=== PATIENT | female | born 1930 | race Caucasian/White ===

== ENCOUNTER → 2016-09-27 | Outpatient (CLI) | payer MEDICARE, BC ==
[~2016-09-27] MED LIST: AC325T PO; ALEN10TA5 PO; ALEN70TA47 PO; CA C1TAB78 PO; CELE100C PO; CHOL5POW MC; CYCL10TA45 PO; FERR325T36 PO; HCT25T PO; MELO-249 PO; MULT-954 PO; OXYB1PAT TD; POLY17PO2 PO; PRAM0.252 PO; SOLI5TAB2 PO; VITA400T PO
== END ==
LOC: LAB 15:41
PROVIDERS: ATTEND Internal Medicine Hematology & Oncology
DX: C18.2 Malignant neoplasm of ascending colon (principal)
CPT/HCPCS: 36415; 82565; 84520

== ENCOUNTER → 2016-09-28 | Outpatient (CLI) | payer MEDICARE, BC ==
--- NOTE | 2016-09-28 09:08 | Diagnostic Imaging Report ---
PROCEDURE: CT of the abdomen with and without contrast and CT of the pelvis with contrast. TECHNIQUE: Precontrast acquisitions were acquired through the abdomen. Multiple contiguous axial images were obtained through the abdomen and pelvis after administration of intravenous contrast. INDICATION: History of colon cancer, left lower quadrant abdominal pain. COMPARISON: 04/27/16. FINDINGS: Mitral annular calcifications are present. The lung bases are clear. Cholelithiasis is present. There is no cholecystitis. Solid organs and vascular structures are stable. There is a significant tortuosity of the abdominal aorta. There is diverticulosis of the sigmoid colon without overt diverticulitis. There is no bowel obstruction, free air, free fluid or ileus. No obvious mass identified. There is no lymphadenopathy. Distal ureters and urinary bladder are normal. Osseous structures are age-appropriate. Significant degenerative changes are seen throughout the lumbar spine. There is a stable right convexity lumbar scoliosis. IMPRESSION: 1. Cholelithiasis without cholecystitis. 2. Mitral valvular disease. 3. Diverticulosis of the sigmoid colon without diverticulitis. 4. No abscess, free air or free fluid. 5. No bowel obstruction or ileus identified. Dictated by: Dictated on workstation # [id number]
== END ==
LOC: RAD 06:52
PROVIDERS: ATTEND Internal Medicine Hematology & Oncology
DX: R10.32 Left lower quadrant pain (principal); K80.20 Calculus of gallbladder without cholecystitis without obstruction; I05.9 Rheumatic mitral valve disease, unspecified; K57.30 Diverticulosis of large intestine without perforation or abscess without bleeding
CPT/HCPCS: 74178; Q9967

== ENCOUNTER → 2016-10-01 | Outpatient (CLI) | payer MEDICARE, BC | LOC: LAB 08:24 | PROVIDERS: ATTEND Internal Medicine Hematology & Oncology | DX: R10.9 Unspecified abdominal pain (principal); R19.7 Diarrhea, unspecified | CPT/HCPCS: 87324; 87449; 87493 ==

== ENCOUNTER 2016-10-20 07:37 | Day surgery (SDC) | payer MEDICARE, BC ==
[~2016-10-20] VITALS: Ht 160 cm; Wt 50.0 kg
[~2016-10-20 07:37] MED LIST changes: -AC325T PO; -ALEN10TA5 PO; -ALEN70TA47 PO; -CA C1TAB78 PO; -CELE100C PO; -CHOL5POW MC; -CYCL10TA45 PO; -FERR325T36 PO; -HCT25T PO; +LACTATED RINGERS 1,000 ML IV SCH; -MELO-249 PO; -MULT-954 PO; -OXYB1PAT TD; -POLY17PO2 PO; -PRAM0.252 PO; +SODIUM CHLORIDE FLUSH 3 ML SYR IV PRN; -SOLI5TAB2 PO; -VITA400T PO
[2016-10-20 07:48] VITALS: BP 170/74
[2016-10-20] MEDS ORDERED: MIDAZOLAM 2 MG/2 ML (VERSED) VIAL ONE (08:33)
[2016-10-20] MEDS ORDERED: PROPOFOL 20 ML IV ONE (08:33)
[2016-10-20] MEDS ORDERED: ALFENTANIL 500 MCG/ML (ALFENTA) 5 ML AMP IV ONE ×2 (08:33)
[2016-10-20 09:45] VITALS: BP 156/57
[2016-10-20 10:01] VITALS: BP 195/79
--- NOTE | 2016-10-20 10:11 | NUR ---
PATIENT AND FAMILY INSTRUCTED TO FOLLOW UP WITH DR. BACA IN REGARDS TO BLOOD PRESSURE. BLOOD PRESSURE 170/74 ON ADMISSION AND 195/79 ON DISCHARGE. BLOOD PRESSURE ALSO REPORTED TO DR. PHUONG HERNANDEZ'S NURSE. PATIENT TO SEE DR. BACA October @1015. PATIENT INFORMED OF THIS AND INSTRUCTED TO MONITOR BLOOD PRESSURE AT HOME IF POSSIBLE.
== END 2016-10-20 10:21 | disposition home or self-care (01) ==
LOC: ASC 07:37
PROVIDERS: ATTEND Surgery
PROC: 0DJD8ZZ Inspection of Lower Intestinal Tract, Via Natural or Artificial Opening Endoscopic (ICD-10-PCS; principal; 2016-10-20)
DX: K57.30 Diverticulosis of large intestine without perforation or abscess without bleeding (principal); Z85.038 Personal history of other malignant neoplasm of large intestine; Z90.49 Acquired absence of other specified parts of digestive tract
CPT/HCPCS: 36415; 45378; 84132; J2250; J7120

== ENCOUNTER → 2016-12-12 | Outpatient (CLI) | payer MEDICARE, BC ==
[2016-12-12 11:56] LABS: MEAN CORPUSCULAR HEMOGLOBIN 28.6 PG (26.0-34.0); MEAN CORPUSCULAR VOLUME 89 FL (80-100); MEAN PLATELET VOLUME 9.9 FL (6.0-9.5); PLATELET COUNT 255 10^3uL (150-450); WHITE BLOOD COUNT 3.75 10^3uL (4.0-11.0)
[2016-12-12 12:05] LABS: ALBUMIN 4.2 g/dL (3.4-5.0); ANION GAP 15.2 MEQ/L (3-15); CALCULATED IONIZED CALCIUM 3.9 mg/dL (3.8-4.6); MAGNESIUM* 1.8 mg/dL (1.6-2.3); TOTAL PROTEIN 7.4 g/dL (6.4-8.5)
[2016-12-12 12:06] LABS: BAND NEUTROPHILS % 0 % (0-6); EOSINOPHILS % 0 % (0-4); LYMPHOCYTES # 0.7 #; MONOCYTES # 0.3 #; MONOCYTES % 9 % (3-11); RBC MORPH NORMAL (NORMAL); SEGMENTED NEUTROPHILS % 73 % (51-67); TOTAL CELLS COUNTED 100
[2016-12-12 19:58] LABS: IRON 105 ug/dL (50-170); UNBOUND IRON CONTENT 352 ug/dl (126-382)
[2016-12-12 20:23] LABS: VITAMIN B 12 437 pg/mL (213-816)
== END ==
LOC: LAB 10:14
PROVIDERS: ATTEND Internal Medicine Hematology & Oncology
DX: C18.2 Malignant neoplasm of ascending colon (principal); E53.8 Deficiency of other specified B group vitamins; D50.9 Iron deficiency anemia, unspecified
CPT/HCPCS: 36415; 80053; 82378; 82607; 82728; 83540; 83550; 83615; 83735; 84100; 85007; 85027